=== PATIENT | male | born 1995 | race Caucasian/White ===

== ENCOUNTER 2020-08-11 18:30 | Emergency (ER) | payer SELFPAY ==
[~2020-08-11] VITALS: Ht 172.7 cm; Wt 59.0 kg
[2020-08-11 18:53] VITALS: BP 122/90
--- NOTE | 2020-08-11 19:07 | NUR ---
PATIENT SENT TO CT
--- NOTE | 2020-08-11 19:15 | NUR ---
RETURNED FROM CT
--- NOTE | 2020-08-11 19:37 | NUR ---
Patient discharged to home in stable condition. Written and verbal after care instructions given. Patient verbalizes understanding of instruction.
== END 2020-08-11 19:44 | disposition home or self-care (01) ==
LOC: ER 18:57
DX: F15.10 Other stimulant abuse, uncomplicated (principal); R00.2 Palpitations; G45.9 Transient cerebral ischemic attack, unspecified; Z60.2 Problems related to living alone
CPT/HCPCS: 70450-TC

== ENCOUNTER 2020-10-30 16:42 | Emergency (ER) | payer OTHER ==
[~2020-10-30] VITALS: Ht 175.3 cm; Wt 59.0 kg
[2020-10-30 17:08] VITALS: BP 124/99
--- NOTE | 2020-10-30 17:46 | NUR ---
PT AGGRESSIVE TO STAFF. LEFT ED. NOT SEEN BY ERMD PROVIDER.
== END 2020-10-30 17:48 | disposition left against medical advice (07) ==
LOC: ER 16:44
DX: Z53.21 Procedure and treatment not carried out due to patient leaving prior to being seen by health care provider (principal); F41.9 Anxiety disorder, unspecified

== ENCOUNTER 2022-07-09 19:22 | Emergency (ER) | payer OTHER ==
--- NOTE | 2022-07-09 20:32 | NUR ---
CALLED TO TRIAGE NO RESPONSE
--- NOTE | 2022-07-09 21:10 | NUR ---
CALLED TO TRIAGE, NO ANSWER.
--- NOTE | 2022-07-09 21:15 | NUR ---
CALLED TO TRIAGE, NO ANSWER.
== END 2022-07-09 21:16 | disposition left against medical advice (07) ==
LOC: ER 19:26
DX: Z53.21 Procedure and treatment not carried out due to patient leaving prior to being seen by health care provider (principal)
CPT/HCPCS: A6403

== ENCOUNTER 2024-09-13 12:52 | Emergency (ER) | payer OTHER ==
[~2024-09-13] VITALS: Ht 162.6 cm; Wt 56.7 kg
[2024-09-13 14:10] VITALS: BP 143/87; TEMP 98.5; O2SAT 98
== END 2024-09-13 14:11 | disposition home or self-care (01) ==
LOC: ER 12:52
DX: F41.9 Anxiety disorder, unspecified (principal); F15.10 Other stimulant abuse, uncomplicated; F32.A Depression, unspecified; Z60.2 Problems related to living alone